=== PATIENT | female | born 1985 | race Caucasian/White ===

== ENCOUNTER 2020-09-08 07:26 | Outpatient (CLI) | payer OTHER, SELFPAY ==
[2020-09-08 08:05] LABS: SARS-CoV-2 Ag Negative (Negative)
== END 2020-09-08 07:27 | disposition home or self-care (01) ==
PROVIDERS: PCP Nurse Practitioner
DX: Z20.828 Contact with and (suspected) exposure to other viral communicable diseases (principal)
CPT/HCPCS: 87426